=== PATIENT | female | born 1940 | race Caucasian/White ===

== ENCOUNTER 2017-06-17 14:20 | Emergency (ER) | payer MEDICAID ==
[~2017-06-17] VITALS: Ht 132.1 cm; Wt 53.1 kg
[~2017-06-17 14:20] MED LIST: ASPI81CT89 PO; ATOR20TA PO; FERR325E14 PO; OSC500 PO; VAS10 PO
[2017-06-17 14:55] VITALS: BP 147/69
[2017-06-17] MEDS ORDERED: POTA8TER12 PO (15:05)
[2017-06-17] MEDS ORDERED: ESOM40EC PO (15:05)
[2017-06-17 15:52] VITALS: BP 146/75
== END 2017-06-17 15:52 | disposition home or self-care (01) ==
LOC: MED 14:20
DX: I10 Essential (primary) hypertension (principal); M19.90 Unspecified osteoarthritis, unspecified site; J45.909 Unspecified asthma, uncomplicated; E11.9 Type 2 diabetes mellitus without complications; Z79.899 Other long term (current) drug therapy; Z88.0 Allergy status to penicillin
CPT/HCPCS: 99283

== ENCOUNTER 2017-12-14 09:10 | Emergency (ER) | payer MEDICAID ==
[~2017-12-14] VITALS: Ht 132.1 cm; Wt 54.0 kg
[~2017-12-14 09:10] MED LIST changes: +ESOM40EC PO; +POTA8TER12 PO
[2017-12-14 09:13] VITALS: BP 123/86
--- NOTE | 2017-12-14 09:20 | NUR ---
PT AMBULATED TO ER BED 11
--- NOTE | 2017-12-14 09:30 | NUR ---
PATIENT PRESENTS TO ED WITH COUGH PRODUCTIVE BODYACHES . PT STATES . DENIES N/V/D; SKIN IS PINK/WARM/DRY; AAOX4 WITH EVEN AND STEADY GAIT; LUNGS RHONCHI UPPER AIRWAY ; HR EVEN AND REGULAR; PATIENT STATES PAIN OF 5/10 AT THIS TIME; VSS; PATIENT POSITIONED FOR COMFORT; HOB ELEVATED; BEDRAILS UP X2; BED DOWN. ER MD MADE AWARE OF PT STATUS.
--- NOTE | 2017-12-14 09:34 | NUR ---
FLU SWAB COLLECTED
--- NOTE | 2017-12-14 09:43 | NUR ---
CXR AT BEDSIDE
[2017-12-14] MEDS ORDERED: ALBUTEROL 0.083% 2.5 MG/3 ML NEBU INH ONE (09:50)
--- NOTE | 2017-12-14 09:54 | NUR ---
RT AT BEDSIDE
--- NOTE | 2017-12-14 10:55 | NUR ---
Patient discharged with v/s stable. Written and verbal after care instructions given and explained. Patient alert, oriented and verbalized understanding of instructions. Ambulatory with steady gait. All questions addressed prior to discharge. ID band removed. Patient advised to follow up with PMD. Rx of ROBITUSSIN/AUGMENTIN/SUDAFED given. Patient educated on indication of medication including possible reaction and side effects. Opportunity to ask questions provided and answered.
[2017-12-14 11:00] VITALS: BP 128/78
== END 2017-12-14 10:55 | disposition home or self-care (01) ==
LOC: MED 09:10
DX: J20.9 Acute bronchitis, unspecified (principal); J32.9 Chronic sinusitis, unspecified
CPT/HCPCS: 36415; 71045; 87804; 99285; J7613; Q0092

== ENCOUNTER 2018-07-20 15:40 | Emergency (ER) | payer MEDICAID ==
[~2018-07-20] VITALS: Ht 144.8 cm; Wt 79.4 kg
[2018-07-20 15:43] VITALS: BP 155/71
--- NOTE | 2018-07-20 15:55 | NUR ---
77 yo f bib dtr w/ c/o head pain s/p hitting head on a door corner 2 days ago. pt denies n/v. no laceration. pain 9/10 burning pain radiates from forehead down the left side of body. pt reports dizziness, PERRLA, NO SLURRED SPEECH, AAOX4, ER MD MADE AWARE, WILL CONTINUE TO MONITOR. hx arthritis
[2018-07-20] MEDS ORDERED: KETOROLAC 30 MG/ML VIAL IM ONE (16:30)
--- NOTE | 2018-07-20 16:42 | NUR ---
PT TO CT IN NO APPEARENT DISTRESS VIA ANAHYRTRAVON WITH BODY WORK AUTO TRIMMER
--- NOTE | 2018-07-20 17:54 | NUR ---
Patient discharged with v/s stable. Written and verbal after care instructions given and explained. Patient alert, oriented and verbalized understanding of instructions. Ambulatory with steady gait. All questions addressed prior to discharge. ID band removed. Patient advised to follow up with PMD. Rx of MOTRIN TRAMADOL given. Patient educated on indication of medication including possible reaction and side effects. Opportunity to ask questions provided and answered.
[2018-07-20 17:57] VITALS: BP 146/74
== END 2018-07-20 17:54 | disposition home or self-care (01) ==
LOC: MED 15:40
DX: S16.1XXA Strain of muscle, fascia and tendon at neck level, initial encounter (principal); S09.90XA Unspecified injury of head, initial encounter; J45.909 Unspecified asthma, uncomplicated; E11.9 Type 2 diabetes mellitus without complications; I10 Essential (primary) hypertension; Z88.0 Allergy status to penicillin; Z79.1 Long term (current) use of non-steroidal anti-inflammatories (NSAID); Z79.84 Long term (current) use of oral hypoglycemic drugs; Z79.899 Other long term (current) drug therapy; W18.39XA Other fall on same level, initial encounter; Y93.89 Activity, other specified; Y92.89 Other specified places as the place of occurrence of the external cause; Y99.8 Other external cause status
CPT/HCPCS: 70450; 72125; 96372; 99284; J1885

== ENCOUNTER 2020-08-30 18:01 | Emergency (ER) | payer MEDICAID ==
[~2020-08-30] VITALS: Ht 132.1 cm; Wt 52.2 kg
[~2020-08-30 18:01] MED LIST changes: +ASPI-1822 PO; -ASPI81CT89 PO; +ENAL-197 PO; -VAS10 PO
[2020-08-30 18:18] VITALS: BP 166/71
--- NOTE | 2020-08-30 18:55 | NUR ---
79 YEAR OLD FEMALE COMPLAINS OF FALL X 3DAYS AGO. PT STATES SHE WAS DIZZY PRIOR TO FALLING, WITH LOC. PT DENIES N/V/D, STATES VISION IS FINE WITHOUT CHANGE. PT COMPLAINS OF HEADACHE THAT FEELS LIKE A "RAY" OR LINE THAT GOES FROM FRONT OF HEAD TO BACK. PT AOX4, BREATHING EVEN AND UNLABORED, SKIN WARM AND DRY. BED IN LOWEST POSITION, LOCKED, BED RAIL UPX1. PMH - DM2, HTN, OA ALLERGIES - PCN
[2020-08-30] MEDS: ACETAMINOPHEN 325 MG TAB PO ONE ×2 (19:05→19:58)
[2020-08-30 21:13] VITALS: BP 166/71
== END 2020-08-30 21:13 | disposition home or self-care (01) ==
LOC: MED 18:01
DX: S16.1XXA Strain of muscle, fascia and tendon at neck level, initial encounter (principal); S09.90XA Unspecified injury of head, initial encounter; J45.909 Unspecified asthma, uncomplicated; E11.9 Type 2 diabetes mellitus without complications; I10 Essential (primary) hypertension; Z79.899 Other long term (current) drug therapy; Z79.82 Long term (current) use of aspirin; Z88.0 Allergy status to penicillin; W19.XXXA Unspecified fall, initial encounter; Y93.89 Activity, other specified; Y92.89 Other specified places as the place of occurrence of the external cause; Y99.8 Other external cause status
CPT/HCPCS: 70450; 71045; 72125; 82948; 99285

== ENCOUNTER 2021-04-01 10:47 | Emergency (ER) | payer MEDICAID ==
[~2021-04-01] VITALS: Ht 147.3 cm; Wt 63.5 kg
[2021-04-01 10:59] VITALS: BP 152/77
[2021-04-01] MEDS ORDERED: ACETAMINOPHEN EXTRA STRENGTH 500 MG TAB PO ONE (11:55)
[2021-04-01 12:14] LABS: BASOPHILS # (AUTO) 0.1 K/uL (0.00-0.22); BASOPHILS % (AUTO) 1.1 % (0.0-2.0); EOSINOPHILS # (AUTO) 0.2 K/uL (0-0.4); EOSINOPHILS % (AUTO) 2.7 % (0.0-4.0); HEMATOCRIT 35.3 % (36-48); HEMOGLOBIN 11.7 g/dL (12.0-16.0); LYMPHOCYTES # (AUTO) 1.7 K/uL (2.5-16.5); LYMPHOCYTES % (AUTO) 30.6 % (20.5-51.1); MEAN CORPUSCULAR HEMOGLOBIN 28 pg (27-31); MEAN CORPUSCULAR HGB CONC 33 g/dL (33-37); MEAN CORPUSCULAR VOLUME 83.4 fL (80-94); MONOCYTES # (AUTO) 0.6 K/uL (0.8-1.0); MONOCYTES % (AUTO) 10.9 % (1.7-9.3); NEUTROPHILS # (AUTO) 3.1 K/uL (1.8-7.7); NEUTROPHILS % (AUTO) 54.7 % (42.2-75.2); PLATELET COUNT (AUTO) 242 K/uL (140-450); RED BLOOD CELL COUNT(AUTO) 4.23 MIL/uL (4.20-5.40); RED CELL DISTRIBUTION WIDTH 12.5 % (11.6-13.7); WHITE BLOOD COUNT (AUTO) 5.7 K/uL (4.8-10.8)
[2021-04-01 12:19] LABS: APPEARANCE,URINE CLEAR (CLEAR); BILIRUBIN,URINE NEGATIVE (NEGATIVE); BLOOD, URINE TRACE-I (NEGATIVE); COLOR,URINE YELLOW (YELLOW); LEUKOCYTE ESTERASE ,URINE NEGATIVE (NEGATIVE); NITRITE, URINE NEGATIVE (NEGATIVE); UGLUCOSE NEGATIVE (NEGATIVE)
[2021-04-01 12:26] LABS: WBC,URINE 0-5 /HPF (0-5)
[2021-04-01 12:27] LABS: RBC,URINE 0-5 /HPF (0-5)
[2021-04-01 13:02] LABS: ANION GAP 13.4 (8-16); CARBON DIOXIDE 25.6 mmol/L (21-32); CHLORIDE 99 mmol/L (98-107); CREATININE 0.6 mg/dL (0.6-1.3); GLUCOSE 90 mg/dL (74-106); SODIUM SERUM 134 mmol/L (136-145); UREA NITROGEN, BLOOD 20 mg/dL (7-18)
[2021-04-01] MEDS ORDERED: IBUPROFEN 600 MG TAB PO ONE (13:10)
[2021-04-01 13:57] VITALS: BP 110/53
== END 2021-04-01 13:57 | disposition home or self-care (01) ==
LOC: MED 10:47
DX: R51.9 Headache, unspecified (principal); E11.9 Type 2 diabetes mellitus without complications; I10 Essential (primary) hypertension; E78.5 Hyperlipidemia, unspecified; Z79.899 Other long term (current) drug therapy; Z79.82 Long term (current) use of aspirin; Z88.0 Allergy status to penicillin; Z88.6 Allergy status to analgesic agent; W19.XXXA Unspecified fall, initial encounter; Y93.89 Activity, other specified; Y92.89 Other specified places as the place of occurrence of the external cause; Y99.8 Other external cause status
CPT/HCPCS: 36415; 70450; 80048; 81001; 84484; 85025; 93005; 99285

== ENCOUNTER 2021-07-27 10:29 | Emergency (ER) | payer MEDICAID ==
[~2021-07-27] VITALS: Ht 132.1 cm; Wt 51.3 kg
[~2021-07-27 10:29] MED LIST changes: +POTA8TAB17 PO; -POTA8TER12 PO
[2021-07-27 10:37] VITALS: BP 155/81
--- NOTE | 2021-07-27 10:53 | NUR ---
Patient wheelchair assisted to bed 5.
--- NOTE | 2021-07-27 11:22 | NUR ---
DR. GIMENEZ BEDSIDE EVALUATING PT
--- NOTE | 2021-07-27 11:22 | NUR ---
80/F BIB DAUGHTER WITH C/O BILATERAL LEG SWELLING SINCE LAST NIGHT. STATES HER BLOOD PRESSURE HAS BEEN ELEVATED AND SHE HAS BEEN EXPERIENCING INTERMITTENT EPISODES OF DIZZINESS. STATES HER PCP REFERRED TO ED FOR AN EKG. PT ALSO STATED SHE HAS HAD SOME PAIN RADIATING FROM HER HEAD DOWN HER NECK AND L ARM. PAIN IS CURRENTLY 10/10 AND STABBING LIKE PAIN. BREATH SOUNDS CLEAR BILATERALLY. MINOR PITTING EDEMA NOTED ON HER L ANKLE. S1/S2 HEAD AND CAP REFILL <2 SECONDS. SKIN DRY AND INTACT. MEDHX: HTN, ARTHRITIS ALLERGIES: PENICILLINS, ACETAMINOPHEN
--- NOTE | 2021-07-27 11:50 | NUR ---
XRAY BEDSIDE WITH PATIENT
--- NOTE | 2021-07-27 11:58 | NUR ---
IV ESTABLISHED WITH 20 G IN L AC. BLOOD WORK COLLECTED AND HANDED TO PRIVATE SECTOR EXECUTIVE BEDSIDE
[2021-07-27 12:05] LABS: BASOPHILS # (AUTO) 0.1 K/uL (0.00-0.22); BASOPHILS % (AUTO) 1.4 % (0.0-2.0); EOSINOPHILS # (AUTO) 0.1 K/uL (0-0.4); EOSINOPHILS % (AUTO) 2.8 % (0.0-4.0); HEMATOCRIT 32.6 % (36-48); HEMOGLOBIN 10.8 g/dL (12.0-16.0); LYMPHOCYTES # (AUTO) 1.6 K/uL (2.5-16.5); LYMPHOCYTES % (AUTO) 32.7 % (20.5-51.1); MEAN CORPUSCULAR HEMOGLOBIN 28 pg (27-31); MEAN CORPUSCULAR HGB CONC 33 g/dL (33-37); MEAN CORPUSCULAR VOLUME 83.7 fL (80-94); MONOCYTES # (AUTO) 0.5 K/uL (0.8-1.0); NEUTROPHILS # (AUTO) 2.5 K/uL (1.8-7.7); NEUTROPHILS % (AUTO) 53.1 % (42.2-75.2); PLATELET COUNT (AUTO) 251 K/uL (140-450); RED CELL DISTRIBUTION WIDTH 12.3 % (11.6-13.7); WHITE BLOOD COUNT (AUTO) 4.8 K/uL (4.8-10.8)
[2021-07-27] MEDS: ONDANSETRON 4 MG/2 ML VIAL IVP ONE (12:05)
[2021-07-27] MEDS: MORPHINE SULFATE 4 MG/ML SYR IVP ONE (12:06)
[2021-07-27 12:21] LABS: ALBUMIN 3.4 g/dL (3.4-5.0); ANION GAP 9.3 (8-16); ASPARTATE AMINOTRANSFERASE 28 U/L (15-37); CARBON DIOXIDE 28.4 mmol/L (21-32); CHLORIDE 103 mmol/L (98-107); CREATININE 0.5 mg/dL (0.6-1.3); GLUCOSE 78 mg/dL (74-106); POTASSIUM 3.7 mmol/L (3.5-5.1); SODIUM SERUM 137 mmol/L (136-145); TOTAL BILIRUBIN 0.4 mg/dL (0.0-1.0); UREA NITROGEN, BLOOD 14 mg/dL (7-18)
[2021-07-27 12:21] LABS: APPEARANCE,URINE CLEAR (CLEAR); BILIRUBIN,URINE NEGATIVE (NEGATIVE); BLOOD, URINE NEGATIVE (NEGATIVE); COLOR,URINE YELLOW (YELLOW); LEUKOCYTE ESTERASE ,URINE NEGATIVE (NEGATIVE); NITRITE, URINE NEGATIVE (NEGATIVE); PH,URINE 6.5 (5.0-9.0); UGLUCOSE NEGATIVE (NEGATIVE)
--- NOTE | 2021-07-27 12:35 | NUR ---
Patient appears to be resting comfortably in bed WITH EYES CLOSED. Vital Signs within normal limits AND CHARTED. Respirations even and unlabored. DAUGHTER BEDSIDE WITH PATIENT
[2021-07-27 13:00] VITALS: BP 127/54
[2021-07-27] MEDS ORDERED: DIAZ2TAB6 PO (13:24)
--- NOTE | 2021-07-27 13:30 | NUR ---
Patient discharged with v/s stable. Written and verbal after care instructions given and explained. Patient alert, oriented and verbalized understanding of instructions. Wheel Chair Assisted with by parent. All questions addressed prior to discharge. ID band removed. Patient advised to follow up with PMD. Rx of VALIUM given. Patient educated on indication of medication including possible reaction and side effects. Opportunity to ask questions provided and answered.
== END 2021-07-27 13:30 | disposition home or self-care (01) ==
LOC: MED 10:29
DX: M79.10 Myalgia, unspecified site (principal); M54.2 Cervicalgia; R51.9 Headache, unspecified; R42 Dizziness and giddiness; R20.0 Anesthesia of skin; J45.909 Unspecified asthma, uncomplicated; K21.9 Gastro-esophageal reflux disease without esophagitis; I10 Essential (primary) hypertension; E78.5 Hyperlipidemia, unspecified; Z88.0 Allergy status to penicillin; Z88.6 Allergy status to analgesic agent; Z79.82 Long term (current) use of aspirin; Z79.899 Other long term (current) drug therapy
CPT/HCPCS: 36415; 71045; 80053; 81003; 83880; 84443; 84484; 85025; 93005; 96374; 96375; 99285; J2270; J2405; Q0092

== ENCOUNTER 2022-08-27 14:53 | Emergency (ER) | payer MEDICAID, OTHER ==
[~2022-08-27] VITALS: Ht 129.5 cm; Wt 52.2 kg
[~2022-08-27 14:53] MED LIST changes: +DIAZ2TAB6 PO
[2022-08-27 15:40] VITALS: BP 185/81
--- NOTE | 2022-08-27 15:47 | NUR ---
PT W/C ASSISTED TO BED 12.
--- NOTE | 2022-08-27 17:20 | NUR ---
81F presents to ED with c/o cough and congestion x4days, and dizziness, nausea and headache since this morning. Pt reports a worsening productive cough, coughing up phlegm. Pt reports intermittent aching like, 8/10 headache. Pt states she took DayQuil yesterday and NyQuil this morning with no relief. Pt reports feeling dizzy shortly after takin the Nyquil. Pt on bedside monitor.
--- NOTE | 2022-08-27 17:30 | NUR ---
Swabs collected and walked to lab.
[2022-08-27 17:32] LABS: BASOPHILS % (AUTO) 0.5 % (0.0-2.0); EOSINOPHILS % (AUTO) 0.1 % (0.0-4.0); HEMATOCRIT 29.7 % (36-48); HEMOGLOBIN 9.8 g/dL (12.0-16.0); LYMPHOCYTES # (AUTO) 0.7 K/uL (2.5-16.5); LYMPHOCYTES % (AUTO) 11.8 % (20.5-51.1); MEAN CORPUSCULAR HEMOGLOBIN 27 pg (27-31); MEAN CORPUSCULAR HGB CONC 33 g/dL (33-37); MEAN CORPUSCULAR VOLUME 82.3 fL (80-94); MONOCYTES # (AUTO) 0.4 K/uL (0.8-1.0); NEUTROPHILS # (AUTO) 4.9 K/uL (1.8-7.7); NEUTROPHILS % (AUTO) 81.6 % (42.2-75.2); PLATELET COUNT (AUTO) 215 K/uL (140-450); RED BLOOD CELL COUNT(AUTO) 3.61 MIL/uL (4.20-5.40); RED CELL DISTRIBUTION WIDTH 11.9 % (11.6-13.7)
[2022-08-27 18:01] LABS: ALBUMIN 3.1 g/dL (3.4-5.0); ANION GAP 11.8 (8-16); ASPARTATE AMINOTRANSFERASE 37 U/L (15-37); CARBON DIOXIDE 27.2 mmol/L (21-32); CHLORIDE 87 mmol/L (98-107); CREATININE 0.5 mg/dL (0.6-1.3); GLUCOSE 125 mg/dL (74-106); SODIUM SERUM 122 mmol/L (136-145); TOTAL BILIRUBIN 0.3 mg/dL (0.0-1.0); UREA NITROGEN, BLOOD 10 mg/dL (7-18)
[2022-08-27] MEDS ORDERED: ONDANSETRON 4 MG ODT PO ONE (18:25)
[2022-08-27] MEDS ORDERED: IBUPROFEN 400 MG TAB PO ONE (18:25)
[2022-08-27 18:46] LABS: ACETAMINOPHEN < 0.5 ug/ml (10-30)
[2022-08-27] MEDS ORDERED: SODIUM CHLORIDE 1 GM TAB PO ONE (19:55)
[2022-08-27] MEDS ORDERED: ONDA-188 PO (20:05)
[2022-08-27] MEDS ORDERED: CLIN300C52 PO (20:05)
--- NOTE | 2022-08-27 20:27 | NUR ---
Patient discharged with v/s stable. Written and verbal after care instructions given and explained. Patient alert, oriented and verbalized understanding of instructions. Ambulatory with steady gait. All questions addressed prior to discharge. ID band removed. Patient advised to follow up with PMD. Rx of CLINDAMYCIN AND ZOFRAN given. Patient educated on indication of medication including possible reaction and side effects. Opportunity to ask questions provided and answered.
[2022-08-27 20:29] VITALS: BP 148/78
== END 2022-08-27 20:27 | disposition home or self-care (01) ==
LOC: MED 14:53
DX: K04.7 Periapical abscess without sinus (principal); Z20.822 Contact with and (suspected) exposure to COVID-19; R05.9 Cough, unspecified; D64.9 Anemia, unspecified; E87.1 Hypo-osmolality and hyponatremia; R11.10 Vomiting, unspecified; K08.89 Other specified disorders of teeth and supporting structures; J45.909 Unspecified asthma, uncomplicated; K21.9 Gastro-esophageal reflux disease without esophagitis; I10 Essential (primary) hypertension; Z79.899 Other long term (current) drug therapy; Z88.0 Allergy status to penicillin; Z88.6 Allergy status to analgesic agent; Z79.82 Long term (current) use of aspirin
CPT/HCPCS: 36415; 71045; 80053; 83880; 84484; 85025; 87426; 87804; 93005; 99285; G0480; Q0092; Q0162

== ENCOUNTER 2022-12-30 14:50 | Inpatient (IN) | payer OTHER ==
[~2022-12-30] VITALS: Ht 142.2 cm; Wt 48.5 kg
[~2022-12-30 14:50] MED LIST changes: +CLIN300C52 PO; +ONDA-188 PO
[2022-12-30 14:52] VITALS: BP 146/64
--- NOTE | 2022-12-30 14:52 | NUR ---
PATIENT BIBA TO BED 1.
--- NOTE | 2022-12-30 14:59 | NUR ---
here for weakness, right lower leg pain, throat dryness and bodyach sr on cm, o2 sat 94% ra, sr up times 2.
[2022-12-30] MEDS ORDERED: NACL 0.9% 1,000 ML IV ONE (15:25)
[2022-12-30] MEDS ORDERED: KETOROLAC 15 MG/ML VIAL IVP ONE (15:25)
[2022-12-30 16:07] LABS: BASOPHILS % (AUTO) 0.7 % (0.0-2.0); EOSINOPHILS % (AUTO) 0.1 % (0.0-4.0); HEMATOCRIT 28.4 % (36-48); HEMOGLOBIN 9.5 g/dL (12.0-16.0); LYMPHOCYTES # (AUTO) 0.6 K/uL (2.5-16.5); LYMPHOCYTES % (AUTO) 14.1 % (20.5-51.1); MEAN CORPUSCULAR HEMOGLOBIN 26 pg (27-31); MEAN CORPUSCULAR HGB CONC 33 g/dL (33-37); MEAN CORPUSCULAR VOLUME 78.1 fL (80-94); MONOCYTES # (AUTO) 0.5 K/uL (0.8-1.0); MONOCYTES % (AUTO) 12.4 % (1.7-9.3); NEUTROPHILS # (AUTO) 2.9 K/uL (1.8-7.7); NEUTROPHILS % (AUTO) 72.7 % (42.2-75.2); PLATELET COUNT (AUTO) 225 K/uL (140-450); RED BLOOD CELL COUNT(AUTO) 3.64 MIL/uL (4.20-5.40); RED CELL DISTRIBUTION WIDTH 12.9 % (11.6-13.7)
[2022-12-30 16:21] LABS: PROTHROMBIN TIME 11.3 secs (10.8-13.4)
[2022-12-30 16:40] LABS: ANION GAP 12.3 (8-16); CHLORIDE 81 mmol/L (98-107); GLUCOSE 107 mg/dL (74-106); POTASSIUM 4.3 mmol/L (3.5-5.1); SODIUM SERUM 115 mmol/L (136-145)
[2022-12-30 16:41] LABS: ALBUMIN 3.3 g/dL (3.4-5.0); ASPARTATE AMINOTRANSFERASE 33 U/L (15-37); CREATININE 0.6 mg/dL (0.6-1.3); TOTAL BILIRUBIN 0.3 mg/dL (0.0-1.0); UREA NITROGEN, BLOOD 8 mg/dL (7-18)
--- NOTE | 2022-12-30 16:48 | NUR ---
Na 115, aware
[2022-12-30] MEDS ORDERED: AZITHROMYCIN 500 MG in DEXTROSE 5% 250 ML IV ONE (17:15)
[2022-12-30] MEDS ORDERED: AZITHROMYCIN 500 MG INJ VIAL IV ONE (17:24)
[2022-12-30] MEDS ORDERED: cefTRIAXone 1,000 MG VIAL ONE (17:24)
[2022-12-30] MEDS ORDERED: EPINEPHrine 1 MG/ML AMP ONE (17:39)
[2022-12-30] MEDS ORDERED: ALBUTEROL 0.083% 2.5 MG/3 ML NEBU INH ONE (17:40)
[2022-12-30] MEDS ORDERED: EPINEPHrine 1 MG/ML AMP IM ONE (17:40)
--- NOTE | 2022-12-30 17:50 | NUR ---
had possible allergic reaction to rocephin, c/o wheezing, sob, low o2 sat on cm, 82at 4 l/min med stopped, Dr Danielle notified, epi im given as ordered. felt better, o2 sat 98% 2 l/m via nc, lungs diffuse wheezing. no hypotension.
[2022-12-30] MEDS ORDERED: NACL 0.9% 1,000 ML IV SCH (17:55)
[2022-12-30] MEDS ORDERED: CLIN75CA2 PO (18:03)
[2022-12-30] MEDS ORDERED: BENZ150C2 PO (18:03)
[2022-12-30] MEDS ORDERED: OMEP40EC24 PO (18:03)
[2022-12-30] MEDS ORDERED: METO25TA PO (18:03)
[2022-12-30] MEDS ORDERED: IBUP-2213 PO (18:03)
[2022-12-30] MEDS ORDERED: CHOL200072 PO (18:03)
[2022-12-30] MEDS ORDERED: FERR-18 PO (18:03)
[2022-12-30] MEDS ORDERED: HYDR25CA1 PO (18:03)
[2022-12-30] MEDS ORDERED: LOSA100T2 PO (18:03)
--- NOTE | 2022-12-30 18:16 | NUR ---
pt sleeping, no ac distres, received albuterol tx, sr on cm, o2 sat 98% 4 l/m via nc, sr up times 2
[2022-12-30 18:39] LABS: ALBUMIN 3.2 g/dL (3.4-5.0); BILIRUBIN,DIRECT 0.1 mg/dL (0.0-0.3); TOTAL BILIRUBIN 0.3 mg/dL (0.0-1.0)
--- NOTE | 2022-12-30 19:04 | NUR ---
sleeping, no ac distress, sr on cm, o2 sat 98% 2 l/m via nc, sr up times 2, denies any pain
--- NOTE | 2022-12-30 19:23 | NUR ---
pt is resting. vital sign within nomal limits . pt is saudi arabian speaker. nasal canula 2L
--- NOTE | 2022-12-30 20:35 | NUR ---
PT WAS ADMITTED TO [facility] DEPARTMENT FROM ER WITH DIAGNOSIS OF COVID PNA AND HYPONATREMIA. PT IS AOX4, MONGOLIAN SPEAKING, ABLE TO VERBALIZE NEEDS AND ABLE TO FOLLOW COMMANDS. PT IS ON BED REST, ON 3L NC AND ON REGULAR DIET. PT HAS IV ON RIGHT HAND GAUGE 22 SALINE LOCK. PT SKIN IS INTACT. NO S/S OF RESPIRATORY DISTRESS NOTED AND NO COMPLAIN OF PAIN. PT WAS ORIENTED TO HOSPITAL/ROOM, BED BUTTON AND CALL LIGHT. ALL SAFETY MEASURES IMPLEMENTED. BED IN LOW POSITION, BED WHEELS ON LOCK AND CALL LIGHT WITHIN REACH
--- NOTE | 2022-12-30 21:35 | NUR ---
aPatient will be [facility]. Admited to tele. Will go to room 117. Belongings list completed. Report to arturo.
[2022-12-30] MEDS: METOPROLOL 25 MG TAB PO SCH (21:37)
--- NOTE | 2022-12-30 21:37 | NUR ---
SCHEDULED AND PRESCRIBED MEDICATION WAS GIVEN TO PT PER MD ORDER. NO COMPLAIN OF PAIN AT THIS TIME. NO S/S OF RESPIRATORY DISTRESS NOTED. ALL SAFETY MEASURES IMPLEMENTED. BED IN LOW POSITION, BED WHEELS ON LOCK AND CALL LIGHT WITHIN REACH.
[2022-12-31] VITALS: BP 141/71
--- NOTE | 2022-12-31 | NUR ---
PT IS ON SLEEP. CHEST RISE AND FALL SYMMETRICALLY NOTED. RESPIRATION IS EVEN AND UNLABORED. NO S/S OF RESPIRATORY DISTRESS NOTED. ALL SAFETY MEASURES IMPLEMENTED. BED IN LOW POSITION, BED WHEELS ON LOCK AND CALL LIGHT WITHIN REACH.
[2022-12-31 00:47] LABS: ANION GAP 11.7 (8-16); CARBON DIOXIDE 25.1 mmol/L (21-32); CHLORIDE 86 mmol/L (98-107); CREATININE 0.6 mg/dL (0.6-1.3); GLUCOSE 142 mg/dL (74-106); POTASSIUM 3.8 mmol/L (3.5-5.1); UREA NITROGEN, BLOOD 7 mg/dL (7-18)
[2022-12-31] MEDS ORDERED: IBUPROFEN 400 MG TAB ONE (00:54)
[2022-12-31] MEDS: IBUPROFEN 200 MG TAB PO PRN ×3 (00:56→21:18)
--- NOTE | 2022-12-31 00:56 | NUR ---
PT WAS GIVEN IBUPROFEN 200MG DUE TO FEVER (100.4) NO S/S OF RESPIRATORY DISTRESS NOTED. ALL SAFETY MEASURES IMPLEMENTED. BED IN LOW POSITION, BED WHEELS ON LOCK AND CALL LIGHT WITHIN REACH.
[2022-12-31 00:57] LABS: SODIUM SERUM 119 mmol/L (136-145)
--- NOTE | 2022-12-31 01:56 | NUR ---
PT LATEST TEMP IS 98.9 PT DENIES PAIN. NO S/S OF RESPIRATORY DISTRESS NOTED. ALL SAFETY MEASURES IMPLEMENTED. BED IN LOW POSITION, BED WHEELS ON LOCK AND CALL LIGHT WITHIN REACH.
--- NOTE | 2022-12-31 02:00 | NUR ---
CHECKED THE PT STILL ON SLEEP. CHEST RISE AND FALL SYMMETRICALLY NOTED. RESPIRATION IS EVEN AND UNLABORED. NO S/S OF RESPIRATORY DISTRESS NOTED. ALL SAFETY MEASURES IMPLEMENTED. BED IN LOW POSITION, BED WHEELS ON LOCK AND CALL LIGHT WITHIN REACH.
[2022-12-31 04:00] VITALS: BP 124/58
--- NOTE | 2022-12-31 04:00 | NUR ---
MORNING CARE WAS DONE TO PT. CHANGED CHUCKS, LINENS AND GOWN. PUT A PUREWICK ALSO TO PT. ALL SAFETY MEASURES IMPLEMENTED. BED IN LOW POSITION, BED WHEELS ON LOCK AND CALL LIGHT WITHIN REACH.
[2022-12-31 07:05] LABS: BASOPHILS % (AUTO) 0.4 % (0.0-2.0); EOSINOPHILS % (AUTO) 0.1 % (0.0-4.0); HEMATOCRIT 29.9 % (36-48); HEMOGLOBIN 9.8 g/dL (12.0-16.0); LYMPHOCYTES # (AUTO) 0.8 K/uL (2.5-16.5); LYMPHOCYTES % (AUTO) 21.5 % (20.5-51.1); MEAN CORPUSCULAR HEMOGLOBIN 26 pg (27-31); MEAN CORPUSCULAR HGB CONC 33 g/dL (33-37); MEAN CORPUSCULAR VOLUME 78.5 fL (80-94); MONOCYTES # (AUTO) 0.5 K/uL (0.8-1.0); MONOCYTES % (AUTO) 13.6 % (1.7-9.3); NEUTROPHILS # (AUTO) 2.4 K/uL (1.8-7.7); NEUTROPHILS % (AUTO) 64.4 % (42.2-75.2); PLATELET COUNT (AUTO) 227 K/uL (140-450); RED BLOOD CELL COUNT(AUTO) 3.81 MIL/uL (4.20-5.40); RED CELL DISTRIBUTION WIDTH 13.4 % (11.6-13.7); WHITE BLOOD COUNT (AUTO) 3.8 K/uL (4.8-10.8)
[2022-12-31 07:10] LABS: ALBUMIN 3.1 g/dL (3.4-5.0); ANION GAP 11.9 (8-16); ASPARTATE AMINOTRANSFERASE 42 U/L (15-37); CARBON DIOXIDE 28.7 mmol/L (21-32); CHLORIDE 89 mmol/L (98-107); CREATININE 0.5 mg/dL (0.6-1.3); GLUCOSE 89 mg/dL (74-106); MAGNESIUM 1.5 mg/dL (1.8-2.4); POTASSIUM 3.6 mmol/L (3.5-5.1); SODIUM SERUM 126 mmol/L (136-145); TOTAL BILIRUBIN 0.2 mg/dL (0.0-1.0); UREA NITROGEN, BLOOD 7 mg/dL (7-18)
[2022-12-31 07:13] LABS: ALBUMIN 3.1 g/dL (3.4-5.0); BILIRUBIN,DIRECT 0.1 mg/dL (0.0-0.3); TOTAL BILIRUBIN 0.2 mg/dL (0.0-1.0)
--- NOTE | 2022-12-31 07:21 | NUR ---
PT IS STABLE. ENDORSED PT TO MORNING SHIFT NURSE FOR CONTINUITY OF CARE.
[2022-12-31 08:45] VITALS: BP 121/69
[2022-12-31] MEDS: ASPIRIN 81 MG TAB.CHEW PO SCH (09:11)
[2022-12-31] MEDS: PANTOPRAZOLE 40 MG TABEC PO SCH (09:11)
--- NOTE | 2022-12-31 09:15 | NUR ---
PATIENT HAS BEEN SCREENED AND CATEGORIZED MODERATE NUTRITION RISK. PATIENT WILL BE SEEN WITHIN 3-5 DAYS OF ADMISSION. 12/30/22-01/04/[address]
[2022-12-31] MEDS: ENOXAPARIN 40 MG/0.4 ML SYR SUBQ SCH (09:20)
[2022-12-31] MEDS ORDERED: remdesivir COMMUNICATION ORDER 1 EA MISC MC PRN (09:25)
[2022-12-31] MEDS ORDERED: REMDESIVIR. 200 MG in NACL 0.9% 100 ML IV SCH (11:00)
[2022-12-31] MEDS ORDERED: remdesivir CLINICAL MONITORING 1 EA MISC MC PRN (11:00)
[2022-12-31 12:10] VITALS: BP 123/61
[2022-12-31] MEDS: LOSARTAN 50 MG TAB PO SCH (12:22)
[2022-12-31] MEDS: METOPROLOL 25 MG TAB PO SCH ×2 (12:22→21:05)
[2022-12-31] MEDS: FUROSEMIDE 40 MG/4 ML VIAL IVP SCH ×2 (14:02→20:58)
[2022-12-31] MEDS: DEXTROSE 5% 1,000 ML IV SCH (17:52)
[2022-12-31 18:42] LABS: ANION GAP 12.1 (8-16); CARBON DIOXIDE 28.8 mmol/L (21-32); CHLORIDE 89 mmol/L (98-107); CREATININE 0.7 mg/dL (0.6-1.3); GLUCOSE 179 mg/dL (74-106); SODIUM SERUM 127 mmol/L (136-145); UREA NITROGEN, BLOOD 9 mg/dL (7-18)
[2022-12-31 18:50] LABS: POTASSIUM 2.9 mmol/L (3.5-5.1)
[2022-12-31 20:00] VITALS: BP 117/61
[2022-12-31] MEDS ORDERED: KCL 20 MEQ IN 100 mL PREMIX 200 ML IV SCH (20:35)
[2022-12-31] MEDS ORDERED: POTASSIUM CHLORIDE 20% 40 MEQ/15 ML UDC PO SCH (20:35)
[2022-12-31] MEDS: AZITHROMYCIN 500 MG in DEXTROSE 5% 250 ML IV SCH (20:58)
[2023-01-01] VITALS: BP 144/83
[2023-01-01] MEDS ORDERED: KCL 20 MEQ IN 100 mL PREMIX 100 ML IV ONE (00:47)
[2023-01-01] MEDS: DEXTROSE 5% 1,000 ML IV SCH (03:33)
[2023-01-01 04:00] VITALS: BP 138/75
--- NOTE | 2023-01-01 07:20 | NUR ---
RECEIVED REPORT FROM [facility] FOR CONTINUITY OF CARE. INITIAL ASSESSMENT DONE. ON CONTACT AND DROPLET PRECAUTION D/T POSITIVE WITH COVID 19. ON CONT. O2 @ 2L/NC. IVF INFUSING WELL. RESP. EVEN AND UNLABORED. NO C/O PAIN OR DISCOMFORT. CALL LIGHT KEPT WITHIN REACH. WILL CONTINUE TO MONITOR.
[2023-01-01 08:00] VITALS: BP 134/70
[2023-01-01 08:06] LABS: ANION GAP 12.6 (8-16); CARBON DIOXIDE 27.1 mmol/L (21-32); CHLORIDE 83 mmol/L (98-107); CREATININE 0.6 mg/dL (0.6-1.3); GLUCOSE 110 mg/dL (74-106); POTASSIUM 3.7 mmol/L (3.5-5.1); UREA NITROGEN, BLOOD 12 mg/dL (7-18)
[2023-01-01 08:09] LABS: ALBUMIN 2.9 g/dL (3.4-5.0); BILIRUBIN,DIRECT 0.1 mg/dL (0.0-0.3); TOTAL BILIRUBIN 0.3 mg/dL (0.0-1.0)
[2023-01-01 08:30] LABS: SODIUM SERUM 119 mmol/L (136-145)
--- NOTE | 2023-01-01 08:30 | NUR ---
RECEIVED CALLED FROM LAB CRITICAL LAB RESULT FOR NA 119. DR. VICENTE NOTIFIED, NO NEW ORDER, DR. NEWMAN ON BOARD.
[2023-01-01] MEDS: PANTOPRAZOLE 40 MG TABEC PO SCH (10:26)
[2023-01-01] MEDS: ASPIRIN 81 MG TAB.CHEW PO SCH (10:26)
[2023-01-01] MEDS: METOPROLOL 25 MG TAB PO SCH ×2 (10:26→21:33)
--- NOTE | 2023-01-01 10:26 | NUR ---
SCHEDULED MEDICATIONS GIVEN. TOLERATING WELL.
[2023-01-01] MEDS: LOSARTAN 50 MG TAB PO SCH (10:27)
[2023-01-01] MEDS: ENOXAPARIN 40 MG/0.4 ML SYR SUBQ SCH (10:28)
[2023-01-01] MEDS: FUROSEMIDE 40 MG/4 ML VIAL IVP SCH (11:06)
[2023-01-01] MEDS: REMDESIVIR. 100 MG in NACL 0.9% 100 ML IV SCH (11:14)
--- NOTE | 2023-01-01 11:14 | NUR ---
SCHEDULED IV REMDESEVIR AND LASIX IVP WAS GIVEN BY LILI STEVENS. TOLERATING WELL.
[2023-01-01 12:00] VITALS: BP 119/75
[2023-01-01] MEDS ORDERED: NACL 3% 500 ML IV ONE ×2 (12:30→21:45)
[2023-01-01 13:48] LABS: ANION GAP 13.4 (8-16); CARBON DIOXIDE 28.1 mmol/L (21-32); CHLORIDE 79 mmol/L (98-107); CREATININE 0.6 mg/dL (0.6-1.3); GLUCOSE 156 mg/dL (74-106); POTASSIUM 3.5 mmol/L (3.5-5.1); UREA NITROGEN, BLOOD 10 mg/dL (7-18)
[2023-01-01 13:51] LABS: SODIUM SERUM 117 mmol/L (136-145)
--- NOTE | 2023-01-01 13:51 | NUR ---
RECEIVED CALLED FROM LAB CRITICAL LAB RESULT FOR NA 117. DR. NEWMAN MADE AWARE.
[2023-01-01 16:00] VITALS: BP 123/64
--- NOTE | 2023-01-01 17:00 | NUR ---
SCHEDULED IV WAS GIVEN BY LILI STEVENS. TOLERATING WELL.
--- NOTE | 2023-01-01 18:00 | NUR ---
URINE SPECIMEN COLLECTED. SEND TO LAB.
[2023-01-01 18:39] LABS: ANION GAP 12.9 (8-16); CHLORIDE 77 mmol/L (98-107); CREATININE 0.6 mg/dL (0.6-1.3); GLUCOSE 206 mg/dL (74-106); POTASSIUM 3.9 mmol/L (3.5-5.1); UREA NITROGEN, BLOOD 12 mg/dL (7-18)
[2023-01-01 18:42] LABS: SODIUM SERUM 113 mmol/L (136-145)
--- NOTE | 2023-01-01 18:44 | NUR ---
RECEIVED CALLED FROM LAB CRITICAL LAB RESULT FOR NA 113. DR. NEWMAN MADE AWARE.
--- NOTE | 2023-01-01 19:15 | NUR ---
REPORT GIVEN TO SUPERVISOR BRIAR SHOPIFEOMA PONCE FOR CONTINUITY OF CARE. REMAINS STABLE. DAUGHTER AT BEDSIDE.
--- NOTE | 2023-01-01 19:16 | NUR ---
RECEIVED REPORT FROM SARA GRAY FOR CONTINUITY OF CARE. PT AWAKE WITH DAUGHTER SOFIA AT BEDSIDE. RESPIRATIONS EVEN AND UNLABORED ON 2L NC. NO DISTRESS NOTED. SATTING AT 99%. DENIES PAIN. ON WRIST LINER. IV SITE ON RAC 20G INFUSING NA 3% AT 25ML/HR. POC DISCUSSED WITH PT AND HILDA BARRY. CALL LIGHT WITHIN REACH. SAFETY PRECAUTIONS IN PLACE.
[2023-01-01 20:00] VITALS: BP 118/78
[2023-01-01] MEDS: FUROSEMIDE 20 MG/2 ML VIAL IVP SCH (21:00)
--- NOTE | 2023-01-01 21:38 | NUR ---
ADMINISTERED DUE MEDS. PT TOLERATED WELL.
[2023-01-01] MEDS: AZITHROMYCIN 500 MG in DEXTROSE 5% 250 ML IV SCH (22:11)
--- NOTE | 2023-01-01 23:05 | NUR ---
SPOKE TO PT USING PAD MACHINE FEEDER # [id number]. PT REQUESTED FOR SNACKS. SNACKS GIVEN. NO COMPLAINT OF ANY DISCOMFORT.
[2023-01-01 23:27] LABS: CREATININE,URINE RANDOM 3 mg/dL (30-125); POTASSIUM,URINE RANDOM 17 mmol/L (12-75); URINE SODIUM, RANDOM 82 mmol/l (40-220)
[2023-01-02] VITALS: BP 132/77
[2023-01-02 00:34] LABS: ANION GAP 11.2 (8-16); CARBON DIOXIDE 29.3 mmol/L (21-32); CHLORIDE 78 mmol/L (98-107); CREATININE 0.7 mg/dL (0.6-1.3); GLUCOSE 211 mg/dL (74-106); POTASSIUM 3.5 mmol/L (3.5-5.1); UREA NITROGEN, BLOOD 12 mg/dL (7-18)
[2023-01-02 00:52] LABS: SODIUM SERUM 115 mmol/L (136-145)
--- NOTE | 2023-01-02 00:52 | NUR ---
RECEIVED CRITICAL LAB FOR SODIUM 115. DR NEWMAN MADE AWARE. AWAITING FOR CALL BACK.
--- NOTE | 2023-01-02 01:23 | NUR ---
PT CLEANED AND CHANGED, HAD BM. CONNECTED TO [employer]. PT REMAINED CLEAN AND DRY.
--- NOTE | 2023-01-02 02:15 | NUR ---
PT COMPLAINING OF LEG PAIN. PT ONLY HAS MOTRIN FOR PAIN BUT NO AVAILABLE MEDICINE IN THE WHOLE HOSPITAL. HOUSE SUP AWARE. PAGED DR MITTAL FOR OTHER PAIN MED ORDER. AWAITING FOR CALL BACK.
[2023-01-02 04:00] VITALS: BP 142/68
--- NOTE | 2023-01-02 05:05 | NUR ---
DID MORNING CARE. SPOKE TO PT'S DAUGHTER SOFIA. PER SOFIA, PT'S LEG PAIN GOES DOWN AND NOW TOLERABLE. LEFT PT RESTING COMFORTABLY IN BED. SAFETY PRECAUTIONS IN PLACE.
--- NOTE | 2023-01-02 07:10 | NUR ---
RECEIVED REPORT FROM BLANKBOOK FORWARDER ROSARIO FOR CONTINUITY OF CARE. INITIAL ASSESSMENT OF DONE. RESP. EVEN AND UNLABORED. IVF INFUSING WELL. CALL LIGHT KEPT WITHIN REACH. WILL CONTINUE TO MONITOR.
--- NOTE | 2023-01-02 07:12 | NUR ---
GAVE BEDSIDE REPORT TO SARA GRAY FOR CONTINUITY OF CARE. PT IS STABLE.
[2023-01-02 07:23] LABS: ANION GAP 11.1 (8-16); CARBON DIOXIDE 27.3 mmol/L (21-32); CHLORIDE 82 mmol/L (98-107); CREATININE 0.6 mg/dL (0.6-1.3); GLUCOSE 134 mg/dL (74-106); POTASSIUM 3.4 mmol/L (3.5-5.1); UREA NITROGEN, BLOOD 13 mg/dL (7-18)
[2023-01-02 07:30] LABS: SODIUM SERUM 117 mmol/L (136-145)
--- NOTE | 2023-01-02 07:30 | NUR ---
RECEIVED CRITICAL LAB RESULT SODIUM 117. DR. NEWMAN NOTIFIED WITH NEW ORDER. INCREASED NACL 3% @ 50 ML/HR. ORDER NOTED AND CARRIED OUT.
[2023-01-02 07:34] LABS: ALBUMIN 2.7 g/dL (3.4-5.0); BILIRUBIN,DIRECT 0.1 mg/dL (0.0-0.3); TOTAL BILIRUBIN 0.3 mg/dL (0.0-1.0)
[2023-01-02 08:00] VITALS: BP 136/59
[2023-01-02] MEDS ORDERED: NACL 3% 500 ML IV SCH ×2 (08:00→20:20)
--- NOTE | 2023-01-02 08:25 | NUR ---
IV SITE LEAKING. REINSERTED IV TO RT HAND 22 G. WITH GOOD BLOOD RETURN.
--- NOTE | 2023-01-02 08:30 | NUR ---
SCHEDULED LASIX IVP AND NACL 3% WAS GIVEN BY JANEL STEVENS. TOLERATING WELL.
[2023-01-02] MEDS: FUROSEMIDE 20 MG/2 ML VIAL IVP SCH ×2 (08:31→22:55)
[2023-01-02] MEDS: METOPROLOL 25 MG TAB PO SCH ×2 (08:51→21:28)
[2023-01-02] MEDS: LOSARTAN 50 MG TAB PO SCH (08:51)
--- NOTE | 2023-01-02 08:51 | NUR ---
SCHEDULED MEDICATIONS GIVEN. TOLERATING WELL.
[2023-01-02] MEDS: PANTOPRAZOLE 40 MG TABEC PO SCH (08:52)
[2023-01-02] MEDS: ASPIRIN 81 MG TAB.CHEW PO SCH (08:52)
[2023-01-02] MEDS: ENOXAPARIN 40 MG/0.4 ML SYR SUBQ SCH (09:00)
[2023-01-02 12:00] VITALS: BP 118/82
[2023-01-02] MEDS: REMDESIVIR. 100 MG in NACL 0.9% 100 ML IV SCH (12:11)
--- NOTE | 2023-01-02 12:11 | NUR ---
REMDESIVIR IV WAS GIVEN BY JANEL STEVENS. TOLERATING WELL.
[2023-01-02 13:14] LABS: ANION GAP 8.3 (8-16); CHLORIDE 84 mmol/L (98-107); CREATININE 0.7 mg/dL (0.6-1.3); GLUCOSE 170 mg/dL (74-106); POTASSIUM 3.3 mmol/L (3.5-5.1); SODIUM SERUM 120 mmol/L (136-145); UREA NITROGEN, BLOOD 14 mg/dL (7-18)
--- NOTE | 2023-01-02 13:32 | NUR ---
DR. VICENTE NOTIFIED FOR POTASSIUM 3.3. AWAITING FOR RESPONSE.
--- NOTE | 2023-01-02 13:45 | NUR ---
DC PLANNING ASSESSMENT COMPLETE PLEASE REFER TO ASSESSMENT FOR ADDITIONAL DETAILS SOFIA RICH TENTATIVE DC PLAN IS FOR PT TO RETURN HOME WITH FAMILY PROVIDING TRANSPORTATION, WHEN MEDICALLY STABLE. Addendum: 01/03/23 at 0829 by Roya SHARIF Amended: Links added.
[2023-01-02 16:00] VITALS: BP 120/75
[2023-01-02] MEDS ORDERED: POTASSIUM CHLORIDE 10 MEQ TABER PO SCH (16:20)
--- NOTE | 2023-01-02 17:45 | NUR ---
PT COMPLAINT OF DRY EYES TO BOTH EYES. NO REDNESS. NO DRAINAGE NOTED. DR. VICENTE NOTIFIED AWAITING FOR RESPONSE.
--- NOTE | 2023-01-02 17:46 | NUR ---
K DUR PO ONCE GIVEN FOR POTASSIUM 3.4. TOLERATING WELL.
[2023-01-02 18:48] LABS: ANION GAP 11.9 (8-16); CARBON DIOXIDE 25.8 mmol/L (21-32); CHLORIDE 89 mmol/L (98-107); CREATININE 0.6 mg/dL (0.6-1.3); GLUCOSE 170 mg/dL (74-106); POTASSIUM 3.7 mmol/L (3.5-5.1); SODIUM SERUM 123 mmol/L (136-145); UREA NITROGEN, BLOOD 15 mg/dL (7-18)
--- NOTE | 2023-01-02 19:35 | NUR ---
ENDORSED TO NIGHT NURSE ROSARIO FOR CONTINUITY OF CARE. DAUGHTER AT BEDSIDE. REMAINS STABLE.
--- NOTE | 2023-01-02 19:36 | NUR ---
RECEIVED REPORT FROM DAY SHIFT NURSE ISAAC FOR CONTINUITY OF CARE. PT AWAKE, WITH DAUGHTER SOFIA AT BEDSIDE. RESPIRATIONS EVEN AND UNLABORED ON 2L NC. SATTING AT 99%. NO DISTRESS NOTED. NO COMPLAINTS OF PAIN. POC DISCUSSED WITH PT AND HILDA MIDDLETON. CALL LIGHT WITHIN REACH. SAFETY PRECAUTIONS IN PLACE.
--- NOTE | 2023-01-02 19:37 | NUR ---
Patient's Plan of Care was discussed and reviewed with SARA: ROSARIO
--- NOTE | 2023-01-02 19:52 | NUR ---
INFORMED DR NEWMAN ABOUT LAB RESULT FOR SODIUM 123. MD ORDERED TO CONTINUE GIVING SODIUM CHLORIDE 3% 500ML AT 40CC/HR. CONTINUE UNTIL SODIUM GETS TO 127-128 THEN D/C PER . INFORMED HILDA MIDDLETON.
[2023-01-02 20:00] VITALS: BP 116/62
[2023-01-02] MEDS: AZITHROMYCIN 500 MG in DEXTROSE 5% 250 ML IV SCH (21:00)
[2023-01-02] MEDS ORDERED: AZITHROMYCIN 500 MG INJ VIAL IV ONE (21:26)
--- NOTE | 2023-01-02 22:48 | NUR ---
IV SITE INFILTRATED. INSERTED NEW IV LINE. NOW, ON LEFT WRIST 22G. IVF RESUMED BY HILDA WILCOX.
[2023-01-03] VITALS: BP 130/67
[2023-01-03 00:34] LABS: ANION GAP 11.2 (8-16); CARBON DIOXIDE 29.4 mmol/L (21-32); CHLORIDE 88 mmol/L (98-107); CREATININE 0.6 mg/dL (0.6-1.3); GLUCOSE 184 mg/dL (74-106); POTASSIUM 3.6 mmol/L (3.5-5.1); SODIUM SERUM 125 mmol/L (136-145); UREA NITROGEN, BLOOD 13 mg/dL (7-18)
[2023-01-03 04:00] VITALS: BP 147/66
--- NOTE | 2023-01-03 05:07 | NUR ---
ASSISTED ASSISTANT PRODUCTION MANAGER IN DOING MORNING CARE. PT TOLERATED WELL. NO COMPLAINTS OF PAIN. NO DISTRESS NOTED. PT SATTING AT 99% ON 2L NC. SAFETY PRECAUTIONS IN PLACE.
[2023-01-03 06:52] LABS: BILIRUBIN,DIRECT 0.1 mg/dL (0.0-0.3); TOTAL BILIRUBIN 0.2 mg/dL (0.0-1.0)
[2023-01-03 06:53] LABS: ANION GAP 10.4 (8-16); CARBON DIOXIDE 31.6 mmol/L (21-32); CHLORIDE 90 mmol/L (98-107); CREATININE 0.6 mg/dL (0.6-1.3); GLUCOSE 112 mg/dL (74-106); SODIUM SERUM 128 mmol/L (136-145); UREA NITROGEN, BLOOD 14 mg/dL (7-18)
--- NOTE | 2023-01-03 07:09 | NUR ---
receive the patient from the night monitor rn in 177. aox4 with admitting diagnosis of Covid pneumonia . will continue to monitor.
--- NOTE | 2023-01-03 07:18 | NUR ---
GAVE BEDSIDE REPORT TO RN ARIAS FOR CONTINUITY OF CARE. PT IS STABLE
[2023-01-03] MEDS ORDERED: NACL 3% 500 ML IV ONE ×2 (07:20→15:00)
[2023-01-03 08:00] VITALS: BP 143/72
[2023-01-03] MEDS: ASPIRIN 81 MG TAB.CHEW PO SCH (08:55)
[2023-01-03] MEDS: PANTOPRAZOLE 40 MG TABEC PO SCH (08:55)
[2023-01-03] MEDS: METOPROLOL 25 MG TAB PO SCH (08:55)
[2023-01-03] MEDS: LOSARTAN 50 MG TAB PO SCH (08:55)
[2023-01-03] MEDS: FUROSEMIDE 20 MG/2 ML VIAL IVP SCH (08:56)
[2023-01-03] MEDS: ENOXAPARIN 40 MG/0.4 ML SYR SUBQ SCH (08:56)
[2023-01-03] MEDS: REMDESIVIR. 100 MG in NACL 0.9% 100 ML IV SCH (11:03)
--- NOTE | 2023-01-03 11:30 | NUR ---
receive a discharge order from the primary MD Contreras . noted and carried out
[2023-01-03] MEDS ORDERED: DEXA6TAB1 PO (11:47)
[2023-01-03 12:00] VITALS: BP 137/78
[2023-01-03 12:20] LABS: ANION GAP 8.4 (8-16); CHLORIDE 89 mmol/L (98-107); CREATININE 0.6 mg/dL (0.6-1.3); GLUCOSE 103 mg/dL (74-106); POTASSIUM 3.4 mmol/L (3.5-5.1); SODIUM SERUM 127 mmol/L (136-145); UREA NITROGEN, BLOOD 14 mg/dL (7-18)
[2023-01-03 14:23] VITALS: BP 125/65
--- NOTE | 2023-01-03 14:34 | NUR ---
01/03/23 RD INITIAL ASSESSMENT COMPLETED PLEASE REFER TO NUTRITION ASSESSMENT UNDER CARE ACTIVITY FOR ESTIMATED NUTRITIONAL NEEDS. 1. CONTINUE REGULAR DIET, FLUID 1000 ML PER MD TOLERATED 2. MONITOR PO INTAKE AND NUTRITION RELATED LAB VALUES 3. RD TO FOLLOW-UP 7 DAYS, LOW RISK REVIEWED BY BERTHA CAPONE RD
[2023-01-03] MEDS ORDERED: POTASSIUM CHLORIDE 10 MEQ TABER PO SCH (15:00)
--- NOTE | 2023-01-03 16:12 | NUR ---
made some discharge patient teaching. patient in a stable condition . no sign and symptoms of pain at this time . no complain of shortness of breath . brought to the lobby thru a wheelchair to a waiting private car with the daughter
--- NOTE | 2023-01-03 16:19 | NUR ---
the rn was able to remove the identification band , intravenous line
--- NOTE | 2023-01-03 16:20 | NUR ---
to continue administration of potassium by oral
--- NOTE | 2023-01-04 10:53 | NUR ---
CALLED DR WILLIAM'S OFFICE LOC[place] [address] [facility] [place] [place] [id number] [phone] SPOKE WITH NILSON HOW INFORMED ME THAT THE OFFICE IS A WALK IN CLINIC. CALLED DAUGHTER SOFIA AND INFORMED HER OF THE ABOVE INFORMATION.
== END 2023-01-03 17:23 | disposition home or self-care (01) | DRG 720 ==
LOC: MED 14:50 → MMU 18:00 → MTU 18:42
PROVIDERS: ADMIT Internal Medicine; ATTEND Internal Medicine
PROC: XW033E5 Introduction of Remdesivir Anti-infective into Peripheral Vein, Percutaneous Approach, New Technology Group 5 (ICD-10-PCS; principal; 2023-01-01)
DX: A41.89 Other specified sepsis (principal); J96.01 Acute respiratory failure with hypoxia; U07.1 COVID-19; I50.21 Acute systolic (congestive) heart failure; E87.1 Hypo-osmolality and hyponatremia; I11.0 Hypertensive heart disease with heart failure; J45.909 Unspecified asthma, uncomplicated; K21.9 Gastro-esophageal reflux disease without esophagitis; Z88.1 Allergy status to other antibiotic agents; Z88.8 Allergy status to other drugs, medicaments and biological substances; Z79.899 Other long term (current) drug therapy; Z88.0 Allergy status to penicillin; Z86.73 Personal history of transient ischemic attack (TIA), and cerebral infarction without residual deficits; Z86.16 Personal history of COVID-19
CPT/HCPCS: 36415; 71045; 80048; 80053; 80076; 82533; 82570; 83735; 83880; 83930; 83935; 84133; 84300; 84443; 84484; 85025; 85379; 85610; 85730; 87040; 87081; 93005; 93971; 94640; 96365; 96372; 96375; 99291; J0171; J0456; J0696; J1650; J1885; J1940; J3480; J3490; J7060; J7613; Q0092; Q9967